=== PATIENT | male | born 1960 ===

== ENCOUNTER 2017-11-11 23:23 | Emergency (ER) | payer OTHER ==
[2017-11-11 23:30] VITALS: TEMP 98.2
[2017-11-12 01:29] LABS: BASO % 0.2 % (0.0-2.0); EOS # 0.1 K/uL (0.0-0.7); EOS % 0.5 % (0.0-4.0); HEMOGLOBIN 16.1 g/dL (12.0-18.0); LYMPH # 1.2 K/uL (1.0-4.3); LYMPH % 8.2 % (20.0-40.0); MEAN CELL VOLUME 84.9 fl (80.0-94.0); MEAN CORPUSCULAR HEMOGLOBIN 29.2 pg (27.0-31.0); MEAN CORPUSCULAR HGB CONC 34.4 g/dL (33.0-37.0); MEAN PLATELET VOLUME 10.6 fl (7.2-11.7); MONO # 0.7 K/uL (0.0-0.8); MONO % 4.8 % (0.0-10.0); NEUT # 12.5 K/uL (1.8-7.0); NEUT % 86.3 % (50.0-75.0); PLATELET COUNT 215 K/uL (130-400); RBC 5.51 Mil/uL (4.40-5.90); RED CELL DISTRIBUTION WIDTH 13.3 % (11.5-14.5); WHITE BLOOD COUNT 14.4 K/uL (4.8-10.8)
[2017-11-12] MEDS: Sodium Chloride 0.9% 1,000 ML IV SCH ×2 (01:34→05:28)
[2017-11-12 01:39] LABS: ALB/GLOB RATIO 1.5 (1.0-2.1); ALBUMIN 4.5 g/dL (3.5-5.0); ALT/SGPT 41 U/L (21-72); AST/SGOT 21 U/L (17-59); BLOOD UREA NITROGEN 15 mg/dl (9-20); CALCIUM 9.3 mg/dL (8.4-10.2); GFR AFRICAN-AMERICAN > 60; GFR NON-AFRICAN AMERICAN > 60
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
[2017-11-12 02:51] LABS: URINE BILIRUBIN NEGATIVE (NEGATIVE); URINE BLOOD NEGATIVE (NEGATIVE); URINE CLARITY CLEAR (Clear); URINE COLOR STRAW (YELLOW); URINE GLUCOSE (UA) >=500 mg/dL (Normal); URINE LEUKOCYTE ESTERASE NEG Leu/uL (Negative); URINE PROTEIN NEGATIVE (NEGATIVE); URINE UROBILINOGEN 0.2-1.0 mg/dL (0.2-1.0)
[2017-11-12 03:08] LABS: ANISOCYTOSIS SLIGHT; BANDS 1 % (0-2); EOSINOPHIL 1 % (0-7); LYMPHOCYTE 8 % (20-50); MONOCYTE 5 % (0-10); NEUTROPHIL 85 % (42-75); PLATELET ESTIMATE NORMAL (NORMAL); TOTAL CELLS COUNTED 100; TOXIC GRANULATION PRESENT
[2017-11-12 03:09] LABS: ACANTHOCYTES SLIGHT
[2017-11-12 03:11] LABS: BARBITURATES, UR NEGATIVE (NEGATIVE); BENZODIAZEPINES, UR NEGATIVE (NEGATIVE); OPIATES, UR NEGATIVE (NEGATIVE); PHENCYCLIDINE, UR NEGATIVE (NEGATIVE)
[2017-11-12 05:41] VITALS: BP 123/81; PULSE 92; RESP 12
--- NOTE | 2017-11-12 10:18 | RAD ---
PROCEDURE: CHEST RADIOGRAPH, 1 VIEW HISTORY: psych eval COMPARISON: None available. FINDINGS: LUNGS: No infiltrates are identified bilaterally. PLEURA: No pneumothorax or pleural fluid seen. CARDIOVASCULAR: Normal. OSSEOUS STRUCTURES: No significant abnormalities. VISUALIZED UPPER ABDOMEN: Normal. OTHER FINDINGS: None. IMPRESSION: No acute cardiopulmonary disease appreciable.
--- NOTE | 2017-11-12 10:53 | CT ---
EXAMINATION PERFORMED: CT head without intravenous contrast. CLINICAL HISTORY: COMPARISON EXAMINATIONS: None TECHNIQUE: 2.5 mm axial acquisition and display. Coronal and sagittal reconstructions. Dose report (mGy-cm): 821.95 Unenhanced study: Coronal and sagittal reconstructed images. FINDINGS: Brain: No intracranial hemorrhage. No mass. Ventricles: No hydrocephalus. Calvarium: Unremarkable. Sinuses: No evidence of acute sinusitis. Mastoid air cells: Unremarkable. Other findings: None. IMPRESSION: No acute intracranial abnormalities. No significant findings to account for the clinical presentation. Concordant results (preliminary interpretation) provided by [facility]. Procedure Completed: 00:59 Preliminary ([facility]) Report: Dictated and Authenticated: 01:43 Final Interpretation: 10:51 November 12, 2017.
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
--- NOTE | 2017-11-13 11:51 | CARD ---
APPROVED REPORT EKG Measurement Heart [id number] <Conclusion> Normal sinus rhythm Normal ECG
[2017-11-18 17:16] VITALS: O2SAT 95
== END 2017-11-12 06:48 | disposition home or self-care (01) ==
LOC: H.ER 23:23
DX: F10.14 Alcohol abuse with alcohol-induced mood disorder (principal); F32.9 Major depressive disorder, single episode, unspecified; F41.9 Anxiety disorder, unspecified
CPT/HCPCS: 70450; 70480; 71045; 80053; 80320; 80324; 80345; 80346; 80349; 80353; 80358; 80361; 81003; 82948; 83992; 85025; 93005; 96361; 96374; 99285; J2060; J7040

== ENCOUNTER 2018-06-07 07:32 | Emergency (ER) | payer OTHER, SELFPAY ==
[2018-06-07 07:36] VITALS: BP 128/80; PULSE 77; RESP 20; TEMP 98.2; O2SAT 97
[2018-06-07 07:38] VITALS: BMI 24.8
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
== END 2018-06-07 09:15 | disposition home or self-care (01) ==
LOC: H.ER 07:32
DX: S20.219A Contusion of unspecified front wall of thorax, initial encounter (principal); S43.409A Unspecified sprain of unspecified shoulder joint, initial encounter; Z86.59 Personal history of other mental and behavioral disorders; E11.9 Type 2 diabetes mellitus without complications; Y93.55 Activity, bike riding; V19.9XXA Pedal cyclist (driver) (passenger) injured in unspecified traffic accident, initial encounter

== ENCOUNTER 2018-09-26 10:21 | Emergency (ER) | payer SELFPAY ==
[2018-09-26 10:34] VITALS: BMI 23.0
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
[2018-09-26 12:54] VITALS: BP 129/84; PULSE 71; RESP 18; TEMP 97.9; O2SAT 100
== END 2018-09-26 12:47 | disposition home or self-care (01) ==
LOC: H.ER 10:21
DX: L72.3 Sebaceous cyst (principal); E11.9 Type 2 diabetes mellitus without complications